=== PATIENT | male | born 1975 | race Two or more races ===

== ENCOUNTER 2021-09-20 02:34 | Emergency (ER) | payer OTHER ==
[~2021-09-20] VITALS: Ht 165.1 cm; Wt 77.3 kg
[2021-09-20 04:17] VITALS: BP 131/95
== END 2021-09-20 04:20 | disposition home or self-care (01) ==
LOC: EMS 02:35
DX: T18.5XXA Foreign body in anus and rectum, initial encounter (principal); Y99.8 Other external cause status; I10 Essential (primary) hypertension; F15.90 Other stimulant use, unspecified, uncomplicated; X58.XXXA Exposure to other specified factors, initial encounter; Y93.89 Activity, other specified; Y92.89 Other specified places as the place of occurrence of the external cause
CPT/HCPCS: 74022; 99283